=== PATIENT | female | born 1970 | race Caucasian/White ===

== ENCOUNTER → 2018-03-29 10:39 | Outpatient (CLI) | payer OTHER, SELFPAY ==
[2018-04-03 10:32] LABS: HPV Reflexed? NOT INDICATED
== END ==
PROVIDERS: Visit Provider Nurse Practitioner
DX: Z01.419 Encounter for gynecological examination (general) (routine) without abnormal findings (principal)
CPT/HCPCS: 88175; G0145

== ENCOUNTER 2020-04-25 23:33 | Inpatient (IN) | payer OTHER, SELFPAY ==
[2020-04-25 23:34] VITALS: BP 159/110; PULSE 111; RESP 18; TEMP 36.6; O2SAT 98; BMI 32.0
[2020-04-26] VITALS (18 sets, daily range): BP systolic 104–144; BP diastolic 68–99; PULSE 83–95; RESP 15–20; TEMP 36.3–37.4; O2SAT 94–100; BMI 31.1; BMI 31.2
--- NOTE | 2020-04-26 00:15 | CT_ITS ---
STUDY: CT ABDOMEN AND PELVIS WITH CONTRAST REASON FOR EXAM: Female, 49 years old. LLQ PAIN/VOMITING since Monday am. Hx of uterine ablation RADIATION DOSAGE (If Supplied By Facility): CTDIvol = ( 16.12 ) mGy, DLP = ( 1203.26 ) mGycm TECHNIQUE: Transaxial images were obtained from the dome of the diaphragm to the symphysis pubis without oral contrast. Oral and amp; IV Gastrografin and amp; 100mL Isovue-370 was administered. Sagittal and coronal images were reconstructed. Individualized dose optimization techniques were used for this CT. COMPARISON: None. FINDINGS: The visualized lung bases are unremarkable. The visualized portions of the heart are within normal limits. Normal liver. Normal gallbladder and extrahepatic biliary system. Normal spleen. Normal pancreas. Normal bilateral adrenal glands. Normal right kidney. Normal left kidney. Normal visualized stomach. There are dilated loops of the small intestine with a non-distended colon consistent with a small bowel obstruction. Normal colon. There is non-visualization of the appendix. Normal abdominal aorta. Normal inferior vena cava. Normal retroperitoneum. Normal urinary bladder. Normal abdominal wall. Normal osseous structures. CT/Abdomen/Pelvis WITH Contrast IMPRESSION: Small bowel obstruction in the distal ileum. Electronically Signed: Keyur Salvador, at 2:41 EDT Tel , Service support ,
[2020-04-26 00:20] LABS: Mucous, Urine 0 SEEN /hpf (<or=2+); Red Blood Cells-Urine 0 SEEN /hpf (0-5)
[2020-04-26] MEDS: 0.9% Normal Saline 1,000 ML 1000 ML IV (00:24)
[2020-04-26 00:25] LABS: Color, Urine Amber (Yellow); Glucose, Dipstick Normal (Normal); Ketone-Dipstick 50 mg/dl (Negative); Leukocyte Esterase-Dipstick 25 /ul (Negative); Nitrite-Dipstick Negative (Negative); Occult Blood-Urine 10 /ul (Negative); Protein-Dipstick 15 mg/dl (Negative); Urine Bilirubin Dipstick Negative (Negative); Urine Clarity Cloudy (Clear); Urine Urobilinogen Normal (Normal)
[2020-04-26] MEDS: Morphine 4 MG/ML Syringe IV ×5 (00:25→17:46)
[2020-04-26] MEDS: Ondansetron 4 MG/2 ML Vial IV ×2 (00:25→05:41)
[2020-04-26 00:37] LABS: Bacteria 3+ /hpf (None Seen); Squamous Epithelial Cells - UA 25-50 SEEN /hpf (5-10); White Blood Cells 0-5 SEEN /hpf (0-5)
[2020-04-26 00:38] LABS: ALB/GLOB Ratio 1.1 RATIO (0.9-2.4); AST(SGOT) 21 U/L (15-37); Alanine Aminotransfer ALT/SGPT 28 U/L (13-56); Albumin, Serum 4.5 g/dL (3.2-5.0); Alkaline Phosphatase 54 U/L (45-117); Anion Gap 6 (5-15); BUN 10 mg/dL (7-18); BUN/Creat Ratio 11.2 RATIO (10-20); Calcium,Total 9.3 mg/dL (8.5-10.1); Chloride 108 mmol/L (98-107); Creatinine, Serum 0.89 mg/dL (0.55-1.02); EST Glomerular Filtration Rate 72 mL/min (>60); Est Glom Filt Rate - Afr Amer 87 mL/min (>60); Estimated Creatinine Clearance 73.15 ml/min; Glucose 114 mg/dL (74-106); Lipase 38 U/L (73-393); Potassium 3.5 mmol/L (3.5-5.1); Protein, Total 8.5 g/dL (6.4-8.2); Sodium Level 138 mmol/L (136-145)
[2020-04-26 00:47] LABS: Absolute Lymphocyte Count 0.94 X10^3/uL (0.83-4.51); Absolute Neutrophil Count 10.8 X10^3/uL (2.0-7.7); Basophil# 0.04 X10^3/uL; Basophil% 0.3 % (0-1); Eosinophil# 0.06 X10^3/uL; Eosinophils% 0.5 % (0-5); Hematocrit 49.4 % (37-47); Hemoglobin 16.9 g/dL (12.0-15.0); Lymphocyte # 0.94 X10^3/ul (4.0); Lymphocyte % 7.6 % (19-41); Mean Corp Hgb Conc 34.2 g/dL (32-36); Mean Corpuscular Hgb 29.6 pg (27.0-32.0); Mean Corpuscular Volume 86.7 fL (81-99); Monocyte# 0.46 X10^3/uL; Monocyte% 3.7 % (0-10); NRBC Flagged by Analyzer 0 % (0-5); Neutrophil # 10.81 X10^3/uL (2.7-7.7); Neutrophil % 87.5 % (47-70); Platelet Count 316 K/mm3 (150-450); RBC Distribution Width CV 12.7 % (11.6-14.6); RBC Distribution Width SD 39.5 fl (35.1-43.9); White Blood Count 12.4 K/mm3 (4.4-11.0)
--- NOTE | 2020-04-26 02:31 | ED.DCSUM_ITS ---
- ER Visit Summary Date of Service: 04/26/20 Chief Complaint: Abdominal pain History of Present Illness: The patient is a 49 F who presents with abdominal pain that began today. Patient states it is gradually gotten worse throughout the day. Patient states her pain is diffuse across her abdomen but worse in the epigastric area. Patient describes her pain is sharp. Patient states nothing makes it better or worse. Patient admits to some nausea and vomiting but denies any hematemesis or coffee-ground emesis. Patient denies any diarrhea, melena, or hematochezia. Patient denies any dysuria or hematuria. Patient denies any fevers or chills. Physical Examination: Vital signs are stable except for mild tachycardia of 111 and a slightly elevated blood pressure of 159/110. Patient is afebrile. Patient is in no acute distress. Oral mucosa is pink and moist. Neck is supple. Trachea is midline. There is no JVD. Heart was regular rate and rhythm. Lungs are clear and equal bilaterally. Abdomen is soft. Bowel sounds are normal. There is mild diffuse tenderness. There is no rebound or guarding noted. Cranial nerves II through XII are intact. There are no focal motor or sensory deficits noted. Test Results: CBC shows a mild leukocytosis of 12.4. Hemoglobin was 16.9 and hematocrit was 49.4. Comprehensive metabolic profile was essentially within normal limits. Urinalysis does not show any evidence of urinary tract infection. CT scan of the abdomen pelvis was obtained. There is a small bowel obstruction of the distal ileum. This was interpreted by the radiologist and reviewed by myself. Emergency Department Course and Treatment: Patient was given morphine and Zofran initially. Patient was given IV fluids. Patient had worsening pain. Patient was given a repeat dose of morphine. Patient was resting comfortably on reevaluation. Case was discussed with Dr. Jorgensen who is on-call for general surgery. She will admit the patient to her service. Patient understood and was agreeable with the plan. All questions were answered. Disposition: Admit to hospital Impression: 1. Small bowel obstruction This note was generated with Inverted Edge dictation software. It may contain incorrect words, spelling, and punctuation that were not noted in review of the chart prior to signing ED Disposition - Plan for ED Patient: Disposition: Acute Care Hospital [facility] Diagnosis: Small bowel obstruction Referrals: [facility] Doctor,Out of [Primary Care Provider] -
--- NOTE | 2020-04-26 03:15 | RAD_ITS ---
STUDY: X-RAY - ABDOMEN/PELVIS REASON FOR EXAM: Female, 49 years old. NG tube placement. TECHNIQUE: Single AP view of the abdomen / pelvis. COMPARISON: None. FINDINGS: Normal visualized lung bases. NG tube in good position tip is at the gastric antrum. Contrast residue is seen in the collecting system of both kidneys. There is an unremarkable bowel gas pattern. There is no demonstrated free abdominal air. The visualized liver, spleen and kidneys are grossly normal in size and morphology. Normal soft tissue structures. Normal visualized osseous structures. RAD/Abdomen Single View (Portable) IMPRESSION: Normal x-ray examination of the abdomen and pelvis. Electronically Signed: Keyur Salvador, at 3:59 EDT Tel , Service support ,
[2020-04-26] MEDS: Lidocaine 4% 5 ML Ampul 2 ML INHALATION (03:21)
[2020-04-26] MEDS: Oxymetazoline 0.05% 1 SPRAY SPRAY.BTL 2 SPRAY NASAL (03:25)
--- NOTE | 2020-04-26 04:18 | RAD_ITS ---
STUDY: X-RAY - ABDOMEN/PELVIS REASON FOR EXAM: Female, 49 years old. NG tube adjustment. TECHNIQUE: Single AP view of the abdomen / pelvis. COMPARISON: None. FINDINGS: Normal visualized lung bases. NG tube in good position tip is at the gastric fundus. Contrast residue is seen in the collecting system of both kidneys. There is an unremarkable bowel gas pattern. There is no demonstrated free abdominal air. The visualized liver, spleen and kidneys are grossly normal in size and morphology. Normal soft tissue structures. Normal visualized osseous structures. RAD/Abdomen Single View (Portable) IMPRESSION: Normal x-ray examination of the abdomen and pelvis. Electronically Signed: Keyur Salvador, at 4:53 EDT Tel , Service support ,
[2020-04-26] MEDS: Lactated Ringers 1,000 ML 150 ML IV ×2 (05:37→13:09)
[2020-04-26] MEDS: 0.9% Saline Lock 10 ML Syringe IV ×2 (05:40→09:49)
--- NOTE | 2020-04-26 06:53 | RAD_ITS ---
STUDY: X-RAY - ABDOMEN/PELVIS REASON FOR EXAM: Female, 49 years old. SBO TECHNIQUE: Single AP view of the abdomen / pelvis. COMPARISON: None. FINDINGS: Nasogastric tube coiled in the left upper quadrant with the tip in the fundus the stomach. Excreted contrast within the renal collecting systems and bladder. There is an unremarkable bowel gas pattern. The visualized liver, spleen and kidneys are grossly normal in size and morphology. Normal soft tissue structures. Normal visualized osseous structures. RAD/Abdomen Single View (Portable) IMPRESSION: 1. Nasogastric tube coiled in the fundus of the stomach. 2. No bowel obstruction. Electronically Signed: Hema Chung MD at 9:43 EDT Tel , Service support ,
[2020-04-26] MEDS: HYDROmorphone 0.5 MG/0.5 ML SYRINGE IV (07:03)
--- NOTE | 2020-04-26 08:43 | HP.PCM_ITS ---
History and Physical Date of Admission: 04/26/20 Chief Complaint: abdominal pain History of Present Illness: 49 y/o WF presents with complaint of initially left lower quadrant abdominal pain, but that has now changed to pain in the upper mid abdominal area. Even with morphine and dilaudid, patient still with pain. She states that it is a burning, spasmodic pain and it waxes and wanes. She denies acid indigestion or heartburn. She has had nausea and dry retching. This began Monday morning and progressively worsened. She states that she has not passed flatus or had a bowel movement since Monday. She states that her only previous surgery was a uterine ablation. She denies PUD, but there is an office note from 2019 with patient presenting with dyspepsia and was on omeprazole. She had presented to [facility] ED in 2016 with severe left lower quadrant abdominal pain (with history of this for a few months) with no etiology and resolved. Also had RUQ abdominal pain in 2016 from note in patient's chart. WBC 12.4K with left shift of differential. UA with LE pos, bacti pos CT scan - Normal visualized stomach. There are dilated loops of the small intestine with a non-distended colon consistent with a small bowel obstruction. Normal colon. There is non-visualization of the appendix. PAST MEDICAL HISTORY Corticoadrenal insufficiency 12/27/2006 Partial adrenal insufficiency Hypothyroidism ? Migraine with aura 12/27/2006 PAST SURGICAL HISTORY: tubes tied uterine ablation MEDICATIONS: synthroid imitrex prn ALLERGIES sulfa Social history: TOB use denies Review of Systems: General - denies fevers, as per HPI Cardiovascular denies chest pain, denies history of heart attack Pulmonary denies shortness of breath, denies coughing up blood Gastrointestinal as per HPI, denies blood in stools, denies hematemesis Neurological has migraine headaches, denies numbness/weakness of extremities, denies seizures, denies history of stroke Genitourinary denies burning with urination, denies blood in urine, has had UTIs in the past but not frequently Hematological denies spontaneous/prolonged bleeding, denies history of DVT/PE, denies history of blood transfusions Skin denies open non healing wounds Musculoskeletal denies history of fractures Endocrine denies diabetes, has hypothyroidism Psychological denies hallucinations Physical examination: Vital signs Ht: 5'6 Wt: 191# Temp 97.5F HR 90 BP 136/97 RR 16 General WD/WN WF in no apparent distress, alert and oriented, not septic appearing HEENT Normocephalic. EOM intact with sclera clear and no icterus noted. Neck is supple with no jugular venous distention noted. Trachea is midline. Lungs normal breath sounds. No rales/rhonchi/wheezing noted. No labored breathing noted, such as retractions. No cough heard. Heart normal heart sounds, regular. Abdomen soft without guarding, patient states tender in hypogastrium and left lower quadrant but no peritoneal signs, also tender in the suprapubic area, decreased bowel sounds. Difficult to determine if any masses due to body habitus. Extremities no pitting edema noted. No obvious deformity noted. Genitourinary/Rectal deferred Skin no rashes noted. Normal skin integrity. Neurological non focal. Psychological normal affect, patient is calm and appropriate Impression: abdominal pain - patient states that it is 7-9 out of 10 obstipation/constipation Discussion/Plan: I have discussed the above with the patient. I have reviewed this morning's KUB and it appears that the oral contrast is now in the colon. She also has a UTI by UA from the ED. Will begin empirical treatment with pepcid and also augmentin for UTI Continue present therapy - NG tube, IV hydration, NPO/bowel rest, pain medications Will also repeat CBC and check lactic acid. May consider repeat CT scan if no resolution of patient's symptoms. I have answered all questions to the patient?s satisfaction and the patient has no further questions.
--- NOTE | 2020-04-26 09:05 | NURSING ---
Pt still painful and nauseated. Pt dry heaving at bedside after NG clamped to go to bathroom. Dr. Jorgensen aware of 10/10 pain despite x1 dilaudid and continued nausea. New orders for medication will be put in by Dr. Jorgensen per Dr. Jorgensen.
[2020-04-26 09:35] LABS: Absolute Lymphocyte Count 0.73 X10^3/uL (0.83-4.51); Absolute Neutrophil Count 13.1 X10^3/uL (2.0-7.7); Basophil# 0.02 X10^3/uL; Basophil% 0.1 % (0-1); Eosinophil# 0.04 X10^3/uL; Eosinophils% 0.3 % (0-5); Hematocrit 43.4 % (37-47); Hemoglobin 14.6 g/dL (12.0-15.0); Lymphocyte # 0.73 X10^3/ul (4.0); Mean Corp Hgb Conc 33.6 g/dL (32-36); Mean Corpuscular Hgb 29.7 pg (27.0-32.0); Mean Corpuscular Volume 88.2 fL (81-99); Mean Platelet Vol. 8.8 fl (6.2-12.0); Monocyte# 0.82 X10^3/uL; Monocyte% 5.6 % (0-10); NRBC Flagged by Analyzer 0 % (0-5); Neutrophil # 13.05 X10^3/uL (2.7-7.7); Neutrophil % 88.5 % (47-70); Platelet Count 365 K/mm3 (150-450); RBC Distribution Width CV 12.6 % (11.6-14.6); RBC Distribution Width SD 40.8 fl (35.1-43.9); Red Blood Count 4.92 M/mm3 (4.2-5.4); White Blood Count 14.7 K/mm3 (4.4-11.0)
[2020-04-26] MEDS: Ketorolac 30 MG/ML Syringe IV (09:50)
[2020-04-26] MEDS: proMETHazine 25 MG/ML Syringe 12.5 MG IV ×2 (09:52→17:45)
[2020-04-26 10:07] LABS: Lactic Acid 0.8 mmol/L (0.4-1.9)
--- NOTE | 2020-04-26 10:14 | PCM.PN.BLA ---
Progress Note I have reviewed all of patient's previous medical records from [facility]. Also I have reviewed patient's radiological studies. CT scan reveals lower lower quadrant abdominal wall for which no mention of this was made by the radiologist. I have gone over this with today's radiologist and he states that this is the cause of the obstruction. Will proceed to surgery for the patient. Will initially begin by diagnostic laparoscopic and if ventral hernia (spighelian) can be repaired laparoscopically, otherwise will proceed to open hernia repair I have explained the procedure to the patient. I have counseled the patient as to the risks of the procedure, including but not limited to: infection, bleeding, injury to any blood vessels/nerves, scar tissue, injury to any intraabdominal organs, injury to kidney/ureters, injury to bowel/bladder,intraabdominal abscess/bleeding, recurrence of hernia, trocar hernias, wound infections, possible open procedure, complications of anesthesia, postoperative pneumonia/cardiac problems/blood clots etc. the patient understands. The patient was offered a surgery/procedure. The provider and patient have discussed in detail the risk of exposure to and/or potential harm posed by the COVID-19 virus with having a surgery/procedure at this time versus the risk of delaying the surgery/procedure. It is not possible to know either the risk of delaying the surgery or procedure or chance of getting an infection with perfect accuracy, but a joint decision was made between the patient and the provider to proceed at this time with the scheduled surgery/procedure. The patient wishes to proceed. I have answered all questions to the patient?s satisfaction and the patient has no further questions. STROKE Vital Signs/Narrative: Vital Signs Temp Pulse Resp BP Pulse Ox 04/26/20 09:08 97.5 F L 95 18 137/85 H 99
--- NOTE | 2020-04-26 10:31 | NURSING ---
at bedside. updated on plan of care
[2020-04-26 11:53] LABS: Thyroid Stim Hormone (TSH) 4.11 uIU/mL (0.358-3.74)
[2020-04-26] MEDS: Bupivacaine Mpf 0.5% 30 ML VIAL (12:39)
--- NOTE | 2020-04-26 12:40 | OP.PCM_ITS ---
Report of Operation Date of Procedure: 04/26/20 Pre-Operative Diagnosis: bowel obstruction, abdominal wall hernia Post-Operative Diagnosis: same as above, left lower quadrant spighelian hernia Surgery/Procedure Performed:: laparoscopic ventral hernia repair Description of Surgical Findings:: left lower quadrant spighelian hernia with loop of bowel incarceration, but not necrotic appearing Type of Anesthesia:: General Anesthesiologist: Dustin Askew Specimen's removed: none Estimated Blood Loss (mL): < 5 ml Fluids Replaced: 1000 ml RL Description of Procedure: After informed consent was given, the patient was brought to the Operating Room. Appropriate time out protocol was followed. The patient was then placed in the supine position. The patient was then placed under general endotracheal anesthesia. The abdomen was then prepped with a sterile surgical skin preparation and sterile surgical drapes were placed. The infraumbilical skin fold was grasped with penetrating clamps and the skin and subcutaneous tissues were infiltrated with 0.25% marcaine with epinephrine. A skin incision was then made with a 15 blade scalpel. The anterior abdominal wall was elevated and a Veress needle was inserted into the intraabdominal cavity. A saline drop test revealed that it was in the proper location and a CO2 pneumoperitoneum was then created. Once this was achieved, the Veress needle was removed and an 11mm trocar was placed in its stead. A 10 mm laparoscope was then inserted into the intraabdominal cavity and its contents were carefully evaluated. There was no evidence of injury from insertion of the Veress needle and the trocar. The patient was then placed in the Trendelenburg position and tilted slightly to the patient's right. An additonal 5 mm trocar was placed in the midline in the suprapubic area under direct visualization after then skin and subcutaneous tiss ues were infiltrated with local anesthetic. There was a loop of small bowel that was incarcerated in an opening in the abdominal wall of the left lower quadrant of the abdominal wall consistent with a Spigelian hernia. Gentle pressure in this area was able to reduce the small bowel into its normal position. The loop of small bowel was carefully examined, it appeared erythematous, however, there was no evidence of gangrene. There was free fluid in the peritoneum. There was no active bleeding or bile drainage noted. The spigelian hernia was measured at 2.5 cm in its maximum dimension. Small skin incisions were made overlying the hernia to allow passage of a Granny needle. The Granny needle passed suture of 0 vicryl to one side of the hernia, to be brought up by the needle on the other side of the hernia. Multiple placement of these sutures were made and once tied, they were able to close the opening of the hernia. The loop of small bowel that had been incarcerated was once again carefully examined. The bowel appeared viable and there was visible peristalsis noted. There was also an incarcerated appendiceal epiploica that appeared ecchymotic for which it had probably been incarcerated with the small loop of bowel, it did not appear necrotic. The pelvic fluid was suctioned out and the area was irrigated with normal saline and all irrigation was suctioned out. No evidence of active bleeding or bile leakage was noted in the intraabdominal cavity. The loop of bowel was viable. The CO2 was released and all trocars removed intact. The fascia at the umbilical hernia site was then reapproximated transversely with [id number] 0 vicryl suture All skin incisions were closed with 4-0 monocryl in a subdermal fashion. Cavilol and Steristrips were used to reinforce the skin closure. Sterile dressings were applied to all wounds. The patient was extubated and brought to the Recovery Room in stable condition. - Complications none noted - Admit VTE Documentation VTE Present on Admission: Yes VTE Mechan Device Prophylaxis: SCD's
[2020-04-26] MEDS: Rizatriptan Benzoate 10 MG Tablet PO (15:53)
--- NOTE | 2020-04-26 16:38 | NURSING ---
pt awakens when nurse in room, states headache is not improved but this is her normal migraine course unfortunately-call light in reach, lights have previously been dimmed- at bedside and door closed to reduce noise
[2020-04-26] MEDS: SUMAtriptan 6 MG/0.5 ML Vial SC (17:39)
[2020-04-26] MEDS: HYDROcodone Bitartrate/Apap 5/325 Tablet PO (21:42)
[2020-04-27] MEDS: Lactated Ringers 1,000 ML 150 ML IV ×3 (00:08→13:54)
[2020-04-27 01:54] VITALS: BP 120/76; PULSE 82; RESP 16; TEMP 36.7; O2SAT 99
[2020-04-27] MEDS: HYDROcodone Bitartrate/Apap 5/325 Tablet PO (04:35)
[2020-04-27] MEDS: Ondansetron 4 MG/2 ML Vial IV (04:44)
[2020-04-27] MEDS: Morphine 4 MG/ML Syringe IV (05:38)
[2020-04-27] MEDS: Levothyroxine 150 MCG Tablet PO (05:42)
[2020-04-27] MEDS: Rizatriptan Benzoate 10 MG Tablet PO (05:42)
[2020-04-27 05:45] VITALS: BP 129/83; PULSE 80; RESP 18; TEMP 36.9; O2SAT 98
[2020-04-27] MEDS: proMETHazine 25 MG/ML Syringe 12.5 MG IV (05:51)
--- NOTE | 2020-04-27 07:57 | PN.SURG_ITS ---
Patient Problems: Active and Suspected Problems Small bowel obstruction (Acute) Subjective: patient with left lower quadrant abdominal pain at site of hernia repair, has not passed flatus yet, has been able to urinate has migraine headaches - Physical Exam Vitals/I&O's: Vital Signs Temp Pulse Resp BP Pulse Ox 98.4 F 80 18 129/83 H 98 04/27/20 05:45 04/27/20 05:45 04/27/20 05:45 04/27/20 05:45 04/27/20 05:45 Oxygen Delivery Method Room Air Weight: 87.6 kg Body Mass Index (BMI) 31.1 Intake and Output for Last 24 Hours 04/25/20 04/26/20 04/27/20 23:59 23:59 23:59 Intake Total 4072.5 / 4232.5 1540 / 1540 Output Total 725 / 1025 900 / 900 Balance 3347.5 / 3207.5 640 / 640 General: Alert, Oriented x3 HEENT: Atraumatic Oral: Moist Mucosa Neck: Supple Lungs: Normal air movement Abdomen: Soft, - - dressings intact Laboratory Results 04/25/20 23:50: TSH 4.11 H 04/26/20 09:07: WBC 14.7 H, RBC 4.92, Hgb 14.6, Hct 43.4, MCV 88.2, MCH 29.7, MCHC 33.6, RDW Std Deviation 40.8, RDW Coeff of Iva 12.6, Plt Count 365, MPV 8.8, Immature Gran % (Auto) 0.500, Neut % (Auto) 88.5 H, Lymph % (Auto) 5.0 L, [place] % (Auto) 5.6, Eos % (Auto) 0.3, Baso % (Auto) 0.1, Absolute Neuts (auto) 13.1 H, Absolute Lymphs (auto) 0.73 L, Nucleated RBC % 0 04/26/20 09:07: Lactic Acid 0.8 Current Medications Hydrocodone Bitart/Acetaminophen ([place] 5mg-325mg) 1 tablet PO Q4H PRN PRN PRN Reason: Pain Score 1-5/10 Last Admin: 04/27/20 04:35 Dose: 1 tablet Documented by: Lactated Ringer's () 1,000 mls @ 150 mls/hr IV .Q6H40M COUNTS INCLUDE 234 BEDS AT THE [facility] Last Admin: 04/27/20 07:10 Dose: 150 mls/hr Documented by: Ampicillin Sodium/Sulbactam Sodium 1,500 mg/ Sodium Chloride 50 mls @ 100 mls/hr IV Q8 COUNTS INCLUDE 234 BEDS AT THE [facility] Last Infusion: 04/27/20 06:10 Dose: Infused Documented by: Levothyroxine Sodium (Synthroid) 150 mcg PO DAILY@0600 COUNTS INCLUDE 234 BEDS AT THE [facility] Last Admin: 04/27/20 05:42 Dose: 150 mcg Documented by: Morphine Sulfate () 4 mg IV Q2H PRN PRN PRN Reason: Pain Score 4-10/10 Last Admin: 04/27/20 05:38 Dose: 4 mg Documented by: Ondansetron HCl (Zofran) 4 mg IV Q8H PRN PRN PRN Reason: NAUSEA/VOMITING Last Admin: 04/27/20 04:44 Dose: 4 mg Documented by: Promethazine HCl (Phenergan) 12.5 mg IV Q4H PRN PRN PRN Reason: NAUSEA/VOMITING Last Admin: 04/27/20 05:51 Dose: 12.5 mg Documented by: Rizatriptan Benzoate (Maxalt) 10 mg PO BID PRN PRN PRN Reason: MIGRAINE SYMPTOMS Last Admin: 04/27/20 05:42 Dose: 10 mg Documented by: Sodium Chloride () 10 - 40 ml IV UD PRN PRN Reason: SALINE FLUSH Last Admin: 04/26/20 09:49 Dose: 20 ml Documented by: Medical Necessity - Tobacco Use Smoking Status: Never smoker Assessment/Plan All Active Problems Small bowel obstruction (Acute) Hypothyroid (Acute) POD#1 s/p laparoscopic ventral hernia repair for SBO Plan: encourage ambulation will await for patient to pass flatus before advancing diet will trial oxycodone for pain meds instead of vicodin
[2020-04-27 08:42] VITALS: BP 132/78; PULSE 76; RESP 18; TEMP 37.1; O2SAT 97
[2020-04-27] MEDS: oxyCODONE 5 MG Tablet PO ×2 (10:10→15:33)
--- NOTE | 2020-04-27 10:45 | CASEMGMT ---
RN ANGELINE Face to Face with patient for initial transition planning/care coordination assessment. RN CM introduced self and role at [facility]. Patient lying in bed, alert and oriented. Patient willing to participate in assessment and is able to answer all questions appropriately. Care providers, pharmacy, and demographics verified. Patient wishes to discharge home, denies need for home health at this time. Patient states he has no further needs or concerns at this time. CM to follow for discharge planning needs that may arise. PCP: Alberto Specialists: [facility] Pharmacy: [facility] Insurance: MMO Prescription Benefit: yes Living Will/HPOA: none LNOK: Living Arrangements: Patient lives with in a 2 story home with bed and bath on first floor. Patient independent at home. Transportation: self, DME/HHC: Patient denies DME or previous HHC. Disposition Plan: Patient to discharge home with family support and follow-up plans in place. Neyda HOLDEN, RN, CM
[2020-04-27 15:29] VITALS: BP 136/75; PULSE 76; RESP 16; TEMP 37.4; O2SAT 98
--- NOTE | 2020-04-27 17:05 | DCINST_ITS ---
Discharge Diet: No Restrictions - drink plenty of fluids, avoid carbonated beverages for a few days Discharge Activity: Return to Normal Activity - walking is encouarged, May not drive while taking narcotic pain medications. Lifting Restrictions: no lifting greater than 10 pounds until further notice Call your doctor if your incision/area has: Continuous Slow Oozing, Foul Smelling Discharge Call your doctor if you observe: Fever of 101 or Higher Additional Instructions: Recommended pain control regimen - May take 600 mg ibuprofen (Motrin) and then in 3-4 hours, may take 650 mg acetaminophen (Tylenol), then in 3-4 hours may take 600 mg ibuprofen, then in 3- 4 hours may take 650 mg acetaminophen and so on for 2-3 days May take narcotic pain medication for pain that is not controlled by above and at night for comfort through the night Leave dressings in place May get dressings wet in shower - do not scrub in the area and pat dry Do not soak - no tub baths/swimming If dressing appears to be soiled/open at one end/no longer sealed - may remove dressing but leave site uncovered (do not replace with any type of dressing) - leave steristrips in place - may get wet but do not scrub in the area and pat dry For hernia surgery - Swelling and bruising will occur in the area of the incision and also the hernia site Ice packs applied to the area will help, apply as long as tolerated and for your comfort Allergies/Adverse Reactions: Allergies Sulfa (Sulfonamide Antibiotics) Allergy (Verified 04/26/20 04:34) Rash Medications to take at Discharge Levothyroxine [Synthroid] 150 mcg PO DAILY 01/14/14 Sumatriptan Succinate [Imitrex] 100 mg PO BID PRN PRN 01/14/14 Oxycodone [Oxyir] 5 mg PO Q12H PRN PRN 5 Days #10 tablet 04/27/20 The following prescriptions were given: Oxycodone [Oxyir] 5 mg PO Q12H PRN PRN 5 Days #10 tablet PRN Reason: Pain Score 6-10/10 Transmission Status: Sent to [id number] Primary Care Physician: [facility] Doctor,Out of [NON-STAFF] - Test Results: Test results from this visit will be discussed in further detail at your follow- up appointment, if applicable. Please Follow Up With: Kandice Jorgensen MD - call When: to be seen in 1-2 weeks, please call for date and time, thank you
[2020-04-27 17:46] VITALS: BP 130/75; PULSE 76; RESP 18; TEMP 37.4; O2SAT 96
== END 2020-04-27 18:00 | disposition home or self-care (01) | DRG 354 ==
LOC: ED 04-26 03:08 → MS3 04-26 05:01
PROVIDERS: Anesthesiology; Admitting Provider Surgery; Emergency Provider Emergency Medicine; Referring Provider Surgery; Visit Provider Surgery
PROC: 0WQF4ZZ Repair Abdominal Wall, Percutaneous Endoscopic Approach (ICD-10-PCS; CPT 49650; principal; 2020-04-26 11:30)
DX: K43.6 Other and unspecified ventral hernia with obstruction, without gangrene (principal); K56.609 Unspecified intestinal obstruction, unspecified as to partial versus complete obstruction; E27.40 Unspecified adrenocortical insufficiency; G43.109 Migraine with aura, not intractable, without status migrainosus; E03.9 Hypothyroidism, unspecified
CPT/HCPCS: 36415; 74018; 74177; 80053; 81001; 83605; 83690; 84443; 85025; 94640; 99251; 99285; J7030; J7120; Q9967; A4216; G0463; J2405; J3030; J3490